=== PATIENT | female | born 1990 | race Caucasian/White ===

== ENCOUNTER 2021-04-09 08:50 | Day surgery (SDC) | payer OTHER ==
[~2021-04-09] VITALS: Ht 175.3 cm; Wt 102.1 kg
[2021-04-09 10:14] LABS: BASOPHILS # (AUTO) 0.1 K/uL (0.00-0.22); BASOPHILS % (AUTO) 0.7 % (0.0-2.0); EOSINOPHILS # (AUTO) 0.1 K/uL (0-0.4); EOSINOPHILS % (AUTO) 1.6 % (0.0-4.0); HEMATOCRIT 39.3 % (36-48); HEMOGLOBIN 13.1 g/dL (12.0-16.0); LYMPHOCYTES # (AUTO) 2.1 K/uL (2.5-16.5); LYMPHOCYTES % (AUTO) 28.1 % (20.5-51.1); MEAN CORPUSCULAR HEMOGLOBIN 30 pg (27-31); MEAN CORPUSCULAR HGB CONC 33 g/dL (33-37); MEAN CORPUSCULAR VOLUME 89.9 fL (80-94); MONOCYTES # (AUTO) 0.5 K/uL (0.8-1.0); NEUTROPHILS # (AUTO) 4.7 K/uL (1.8-7.7); NEUTROPHILS % (AUTO) 62.6 % (42.2-75.2); PLATELET COUNT (AUTO) 279 K/uL (140-450); RED BLOOD CELL COUNT(AUTO) 4.38 MIL/uL (4.20-5.40); RED CELL DISTRIBUTION WIDTH 13.3 % (11.6-13.7); WHITE BLOOD COUNT (AUTO) 7.5 K/uL (4.8-10.8)
[2021-04-09] MEDS ORDERED: fentaNYL citrate 0.05 MG/ML VIAL ONE (11:14)
[2021-04-09] MEDS ORDERED: LIDOCAINE MPF 2% 100 MG/5 ML VIAL INJ ONE (11:17)
[2021-04-09] MEDS ORDERED: ONDANSETRON 4 MG/2 ML VIAL IVP PRN ×2 (11:30→12:05)
[2021-04-09] MEDS ORDERED: diphenhydrAMINE 50 MG/ML VIAL IVP PRN ×2 (11:30→12:05)
[2021-04-09] MEDS ORDERED: BLOOD GLUCOSE MONITORING 1 DEV DEV FS SCH (11:30)
[2021-04-09] MEDS ORDERED: MEPERIDINE 25 MG/ML SYR IVP PRN (11:30)
[2021-04-09] MEDS ORDERED: LACTATED RINGERS 1,000 ML IV SCH (11:30)
[2021-04-09] MEDS ORDERED: fentaNYL citrate 0.05 MG/ML VIAL IVP PRN (11:30)
[2021-04-09] MEDS ORDERED: oxyCODONE/APAP 5/325 MG 1 TAB TAB PO PRN ×2 (11:30→12:05)
[2021-04-09] MEDS ORDERED: DOXYCYCLINE 200 MG in DEXTROSE 5% 250 ML IV SCH (11:38)
[2021-04-09] MEDS ORDERED: KETOROLAC 15 MG/ML VIAL IVP PRN (12:05)
[2021-04-09] MEDS ORDERED: KETOROLAC 30 MG/ML VIAL ONE (12:15)
[2021-04-09] MEDS ORDERED: METOCLOPRAMIDE 10 MG/2 ML INJ VIAL ONE (12:15)
[2021-04-09] MEDS ORDERED: ROCURONIUM 50 MG/5 ML VIAL IV ONE (12:15)
[2021-04-09] MEDS ORDERED: GLYCOPYRROLATE 0.2 MG/ML VIAL ONE (12:15)
[2021-04-09] MEDS ORDERED: NEOSTIGMINE 1:1000 10 MG/10 ML VIAL ONE (12:15)
[2021-04-09] MEDS ORDERED: ONDANSETRON 4 MG/2 ML VIAL ONE (12:15)
--- NOTE | 2021-04-09 14:43 | NUR ---
DISCHARGED PT , WHEELED IN THE LOBBY, PICKED UP BY SISTER, PATIENT ALERT, ORIENTED, NO BLEEDING NOTED Addendum: 04/09/21 at 1449 by Anyi Peters RN VIBRAMYCIN 250 ML COMPLETED
== END 2021-04-09 14:43 | disposition home or self-care (01) ==
LOC: MDS 08:50 → MMU 08:57 → MDS 14:43
PROVIDERS: ATTEND Obstetrics & Gynecology
DX: O03.4 Incomplete spontaneous abortion without complication (principal); E11.9 Type 2 diabetes mellitus without complications; Z79.899 Other long term (current) drug therapy
CPT/HCPCS: 36415; 59820; 85025; 86886; 86900; 86901; 87426; 88305; J1885; J2001; J2405; J2710; J2765; J3010; J3490; J7030; J7060

== ENCOUNTER 2022-03-10 12:30 | Observation (INO) | payer OTHER ==
[~2022-03-10] VITALS: Ht 175.3 cm; Wt 123.8 kg
[2022-03-10 12:50] VITALS: BP 127/62
[2022-03-10] MEDS ORDERED: PREN-543 PO (14:06)
== END 2022-03-10 14:20 | disposition home or self-care (01) ==
LOC: MLD 12:30
PROVIDERS: ADMIT Obstetrics & Gynecology; ATTEND Obstetrics & Gynecology
DX: O62.9 Abnormality of forces of labor, unspecified (principal); Z20.822 Contact with and (suspected) exposure to COVID-19; Z3A.32 32 weeks gestation of pregnancy
CPT/HCPCS: 76819; 87426; G0378; Q0092; 81000

== ENCOUNTER 2022-04-19 11:48 | Inpatient (IN) | payer OTHER ==
[~2022-04-19] VITALS: Ht 175.3 cm; Wt 133.4 kg
[~2022-04-19 11:48] MED LIST: PREN-543 PO
[2022-04-19] MEDS ORDERED: ceFAZolin Sod. 2,000 MG in DEXTROSE 5% 100 ML IV ONE (12:15)
[2022-04-19] MEDS ORDERED: LACTATED RINGERS 1,000 ML IV SCH (12:15)
[2022-04-19 13:17] LABS: BASOPHILS % (AUTO) 0.5 % (0.0-2.0); EOSINOPHILS % (AUTO) 0.5 % (0.0-4.0); HEMATOCRIT 39.4 % (36-48); HEMOGLOBIN 13.5 g/dL (12.0-16.0); LYMPHOCYTES # (AUTO) 1.7 K/uL (2.5-16.5); LYMPHOCYTES % (AUTO) 18.2 % (20.5-51.1); MEAN CORPUSCULAR HEMOGLOBIN 30 pg (27-31); MEAN CORPUSCULAR HGB CONC 34 g/dL (33-37); MONOCYTES # (AUTO) 0.5 K/uL (0.8-1.0); MONOCYTES % (AUTO) 5.3 % (1.7-9.3); NEUTROPHILS # (AUTO) 7.1 K/uL (1.8-7.7); NEUTROPHILS % (AUTO) 75.5 % (42.2-75.2); PLATELET COUNT (AUTO) 222 K/uL (140-450); RED BLOOD CELL COUNT(AUTO) 4.58 MIL/uL (4.20-5.40); RED CELL DISTRIBUTION WIDTH 15.4 % (11.6-13.7); WHITE BLOOD COUNT (AUTO) 9.4 K/uL (4.8-10.8)
[2022-04-19] MEDS ORDERED: ceFAZolin 2,000 MG VIAL ONE (13:29)
[2022-04-19 13:30] LABS: APPEARANCE,URINE SL CLOUDY (CLEAR); BILIRUBIN,URINE 1+ (NEGATIVE); BLOOD, URINE NEGATIVE (NEGATIVE); COLOR,URINE YELLOW (YELLOW); LEUKOCYTE ESTERASE ,URINE TRACE (NEGATIVE); NITRITE, URINE NEGATIVE (NEGATIVE); UGLUCOSE TRACE (NEGATIVE)
[2022-04-19 13:38] LABS: ALBUMIN 2.4 g/dL (3.4-5.0); ANION GAP 16.5 (8-16); CARBON DIOXIDE 20.3 mmol/L (21-32); CREATININE 0.7 mg/dL (0.6-1.3); POTASSIUM 3.8 mmol/L (3.5-5.1); TOTAL BILIRUBIN 0.4 mg/dL (0.0-1.0)
[2022-04-19 13:51] LABS: RBC,URINE 0-5 /HPF (0-5)
[2022-04-19 13:52] LABS: WBC,URINE 0-5 /HPF (0-5)
[2022-04-19 13:53] LABS: FINE GRANULAR CASTS,URINE 0-10 /LPF (None Seen)
[2022-04-19] MEDS ORDERED: MORPHINE PRES FREE 10 MG/10 ML AMP IV ONE (13:56)
[2022-04-19 14:12] VITALS: BP 128/68
[2022-04-19 14:15] LABS: PROTHROMBIN TIME 10.2 secs (10.8-13.4)
[2022-04-19] MEDS ORDERED: diphenhydrAMINE 50 MG/ML VIAL IVP PRN (14:45)
[2022-04-19] MEDS ORDERED: OXYTOCIN 20 UNITS in LACTATED RINGERS 1,000 ML IV SCH (14:45)
[2022-04-19] MEDS ORDERED: KETOROLAC 30 MG/ML VIAL IVP PRN (14:45)
[2022-04-19] MEDS ORDERED: ONDANSETRON 4 MG/2 ML VIAL IVP PRN (14:45)
[2022-04-19] MEDS ORDERED: NALOXONE 0.4 MG/ML VIAL IVP PRN (14:45)
[2022-04-19] MEDS ORDERED: MEASLES, MUMPS, AND RUBELLA 1 VIAL SQVAC ONE (17:20)
[2022-04-19] MEDS ORDERED: METHYLERGONOVINE 0.2 MG/ML AMP IM PRN (17:20)
[2022-04-19] MEDS ORDERED: CARBOPROST 250 MCG/ML AMP IM PRN (17:20)
[2022-04-19] MEDS: KETOROLAC 30 MG/ML VIAL IM/IVP SCH (18:43)
[2022-04-19] MEDS: OXYTOCIN 20 UNITS in LACTATED RINGERS 1,000 ML IV SCH (19:50)
[2022-04-20] MEDS: KETOROLAC 30 MG/ML VIAL IM/IVP SCH ×3 (00:26→12:11)
[2022-04-20] MEDS ORDERED: OXYTOCIN 20 UNITS/LR PREMIX 1,000 ML IV ONE ×2 (03:37→11:13)
[2022-04-20] MEDS: OXYTOCIN 20 UNITS in LACTATED RINGERS 1,000 ML IV SCH ×2 (03:45→12:10)
[2022-04-20 05:51] LABS: BASOPHILS % (AUTO) 0.4 % (0.0-2.0); EOSINOPHILS # (AUTO) 0.1 K/uL (0-0.4); HEMATOCRIT 34.2 % (36-48); HEMOGLOBIN 11.7 g/dL (12.0-16.0); LYMPHOCYTES # (AUTO) 1.7 K/uL (2.5-16.5); LYMPHOCYTES % (AUTO) 18.9 % (20.5-51.1); MEAN CORPUSCULAR HEMOGLOBIN 30 pg (27-31); MEAN CORPUSCULAR HGB CONC 34 g/dL (33-37); MEAN CORPUSCULAR VOLUME 86.3 fL (80-94); MONOCYTES # (AUTO) 0.6 K/uL (0.8-1.0); MONOCYTES % (AUTO) 6.7 % (1.7-9.3); NEUTROPHILS # (AUTO) 6.4 K/uL (1.8-7.7); PLATELET COUNT (AUTO) 181 K/uL (140-450); RED BLOOD CELL COUNT(AUTO) 3.96 MIL/uL (4.20-5.40); RED CELL DISTRIBUTION WIDTH 15.4 % (11.6-13.7); WHITE BLOOD COUNT (AUTO) 8.8 K/uL (4.8-10.8)
[2022-04-20] MEDS: bisacodyL 10 MG SUPP RC SCH (09:00)
--- NOTE | 2022-04-20 10:24 | NUR ---
PATIENT HAS BEEN SCREENED AND CATEGORIZED LOW NUTRITION RISK. PATIENT WILL BE SEEN WITHIN 7 DAYS OF ADMISSION. 04/26/22 REVIEWED BY CHARO H[address]EN RD
[2022-04-20] MEDS: SIMETHICONE 80 MG TAB.CHEW PO PRN ×2 (10:55→16:12)
[2022-04-20] MEDS ORDERED: oxyCODONE/APAP 5/325 MG 1 TAB TAB PO PRN (14:00)
[2022-04-20] MEDS: oxyCODONE/APAP 5/325 MG 1 TAB TAB PO PRN ×2 (16:16→21:26)
[2022-04-20] MEDS: IBUPROFEN 800 MG TAB PO PRN (20:14)
[2022-04-21] MEDS: SIMETHICONE 80 MG TAB.CHEW PO PRN ×3 (01:47→12:30)
[2022-04-21] MEDS ORDERED: CAMERA MC ONE (03:18)
[2022-04-21] MEDS: oxyCODONE/APAP 5/325 MG 1 TAB TAB PO PRN ×2 (03:30→12:29)
[2022-04-21] MEDS: IBUPROFEN 800 MG TAB PO PRN (06:16)
[2022-04-21] MEDS: bisacodyL 10 MG SUPP RC SCH (09:00)
== END 2022-04-21 18:03 | disposition home or self-care (01) | DRG 540 ==
LOC: MLD 11:48 → MFCC 17:28
PROVIDERS: ADMIT Obstetrics & Gynecology; ATTEND Obstetrics & Gynecology
PROC: 10D00Z1 Extraction of Products of Conception, Low, Open Approach (ICD-10-PCS; principal; 2022-04-19 14:00)
DX: O34.211 Maternal care for low transverse scar from previous cesarean delivery (principal); O16.4 Unspecified maternal hypertension, complicating childbirth; O24.424 Gestational diabetes mellitus in childbirth, insulin controlled; Z20.822 Contact with and (suspected) exposure to COVID-19; Z3A.38 38 weeks gestation of pregnancy; Z37.0 Single live birth
CPT/HCPCS: 36415; 80053; 81001; 82948; 85025; 85610; 85730; 86592; 86886; 86900; 86901; 87086; J1885; J2270; J2590; J7120